=== PATIENT | female | born 1990 | race Caucasian/White ===

== ENCOUNTER 2020-06-04 11:08 | Outpatient (CLI) | payer MEDICAID, SELFPAY ==
--- NOTE | ~2020-06-04 | US_ITS ---
EXAMINATION: US OB <=14 wk fetus w TV DATE: 06/04/2020 11:52 INDICATION: Vaginal bleeding during 10 per week of TECHNIQUE: Real-time pelvic ultrasound utilizing both a transvaginal and transabdominal probe was pe rformed. The interpreting radiologist was not present for the study. COMPARISON: None. FINDINGS: The uterus measures 12.3 x 7.3 x 6.3 cm. There is an intrauterine gestational sac. A yolk sac and po ssible pole are identified. The crown rump length of the presumptive pole measures 3 mm, which correlates with an estimated gestational age of 6 weeks and 0 days. No discernible heart motion. The right ovary measures 2.6 x 2.5 x 3.6 cm. The left ovary measures 2.6 x 2.3 x 1.6 cm. There is no free fluid in the pelvis. IMPRESSION: 1. Single intrauterine gestational sac with yolk sac and possible 3 mm pole which is without di scernible heart motion which could be due to either early stage of or failed . 2. Gestational age by ultrasound of 6 weeks 0 day(s) +/- 4 day(s) with ultrasound estimated date of delivery (BRANDY) of 01/28/2021. Reviewed, dictated and finalized at location A. [facility] TA[employer] IMPRESSION: 1. Single intrauterine gestational sac with yolk sac and possible 3 mm po le which is without discernible heart motion which could be due to either early stage of or failed . 2. Gestational age by ultrasound of 6 weeks 0 day(s) +/- 4 day(s) with ultraso und estimated date of delivery (BRANDY) of 01/28/2021.
== END 2020-06-04 11:09 | disposition home or self-care (01) ==
PROVIDERS: PCP Family Medicine; Visit Provider Obstetrics & Gynecology
DX: O20.0 Threatened abortion (principal); Z3A.01 Less than 8 weeks gestation of pregnancy
CPT/HCPCS: 76801; 76817

== ENCOUNTER 2020-06-07 11:58 | Day surgery (SDC) | payer MEDICAID, SELFPAY ==
[2020-06-07 12:50] VITALS: BMI 22.0
[2020-06-07] MEDS: ACETAMINOPHEN 500 MG TABLET 1000 MG PO (12:55)
--- NOTE | 2020-06-07 13:02 | P.PNAN_ITS ---
Anes - Initial Pre Proc Eval Procedure: Operation Date: 06/07/20 14:00 Proposed Procedures p Suction Dilation And Curettage - Neela Escalante MD Date/Time: 06/07/20 13:02 Surgeon: Neela Escalante MD Pre Op Diagnosis: Missed AB Patient Data Age: 29 Gender: F Height: 1.57 m Weight: 54.6 kg Allergies Allergy/AdvReac Type Severity Reaction Status Date / Time No Known Allergies Allergy Verified 06/07/20 12:27 Home Medications Medication Instructions Recorded Confirmed Type No Home Medications 06/07/20 06/07/20 History Patient hx anesthesia problems: none Family hx anesthesia problems: none [facility] Social History Social History Smoking status: Former smoker Alcohol intake: never Anes - Eval Final PreProcedure Day of Procedure 06/07/20 13:02 Patient weight: normal Heart: regular rate and rhythm Lungs: clear to auscultation and normal air movement Airway: Mallampati scale class II Neurological: alert and oriented Last oral intake: >/= 8 hours ASA classification: II Emergent: no Anesthetic plan: proceed Anesthesia type and monitoring: general GIVS and LMA Informed Consent: The patient's anesthetic plan and its attendant risks and benefits were discussed with the patient/family/POA. Questions were solicited and answers provided to the satisfaction of the patient/family/POA.
[2020-06-07] MEDS: LACTATED RINGERS 1,000 ML 30 ML IV CONT (13:13)
[2020-06-07 13:16] VITALS: BP 98/55; PULSE 83; RESP 16; TEMP 37.3; O2SAT 100
[2020-06-07] MEDS: fentaNYL CITRATE INJ (*CRX) 100 MCG/2 ML VIAL 50 MCG IV PUSH (13:23)
--- NOTE | 2020-06-07 13:55 | WPDHPUPDATE1 ---
History and Physical Update Update Date/Time: 06/07/20 13:55 History and Physical has been reviewed, including an updated exam of the patient. There are NO changes in the patient's condition. Risks, benefits, and alternatives have been discussed and questions answered. Patient agrees to proceed with procedure.
--- NOTE | 2020-06-07 14:04 | P.OP_ITS ---
Procedure Note - Detailed Date of procedure: 06/07/20 Pre-op diagnosis: Missed AB Post-op diagnosis: same Procedure performed: suction D and C Description of procedure: The risks of the procedure were explained to the patient to include bleeding, infection, uterine perforation, injury to adjacent organs, reaction to anesthesia, and possible . After this was explained to the patient and all of her questions were answered, informed consent was obtained. The patient was taken to the operating room where she received MAC anesthesia without any difficulty. She was placed in dorsal lithotomy position in stirrups and prepped and draped in a normal sterile fashion. A bimanual exam was performed and demonstrated an anteverted uterus, approximately 6 week size. A bivalve speculum was introduced into the vagina. The anterior lip of the cervix was grasped with a single tooth tenaculum. The cervix was dilated in serial fashion to accomodate a #7 curved suction curette. The suction was tested and found to be working properly. The curette was then advanced into the uterine cavity. All products of conception were removed until no tissue was seen passing through the tubing. The specimen was sent to pathology. The single too th tenaculum was removed from the cervix and made hemostatic with pressure. The speculum was removed. The patient tolerated the procedure well. All counts were correct. The patient was awakened and taken to the recovery room in stable condition. Disposition: stable to recovery Anesthesia: MAC Surgeon: Neela Escalante MD Drains: No Packing: No Pathology: yes (products of conception) Complications: No immediate complications Condition: stable Disposition: same day
[2020-06-07] MEDS: KETOROLAC 30 MG/ML VIAL (*BKC) IV PUSH (14:39)
[2020-06-07 14:44] VITALS: BP 78/41; PULSE 89; RESP 20; O2SAT 100
[2020-06-07 14:50] VITALS: BP 83/41; PULSE 77; RESP 20
[2020-06-07 15:15] VITALS: BP 84/49; PULSE 65; RESP 20
[2020-06-07 15:45] VITALS: BP 88/50; PULSE 65; RESP 20
== END 2020-06-07 16:05 | disposition home or self-care (01) ==
PROVIDERS: PCP Family Medicine; Visit Provider Obstetrics & Gynecology
PROC: (CPT 59820; principal; 2020-06-07 14:00)
DX: O02.1 Missed abortion (principal)
CPT/HCPCS: 59820; 36415; 85461; 88305; A9270; J1100; J1885; J2250; J2405; J2704; J3010; J7120

== ENCOUNTER 2020-07-17 21:27 | Emergency (ER) | payer OTHER, SELFPAY ==
--- NOTE | ~2020-07-17 | US_ITS ---
EXAMINATION: US pelvic complete w TV DATE: 07/18/2020 01:06 INDICATION: Left lower quadrant abdominal pain. TECHNIQUE: Multiple transabdominal and transvaginal sonographic images of the pelvis were obtained. COMPARISON: Ultrasound 06/04/2020 FINDINGS: TRANSABDOMINAL ULTRASOUND: The uterus measures 10.5 x 6.2 x 5.4 cm. The right ovary measures 3.2 x 3.0 x 2.6 cm. The left ovary measures 2.8 x 2.6 x 1.9 cm. There is normal vascular flow in the ovaries. There is trace free fluid in the pelvis. TRANSVAGINAL ULTRASOUND: The endometrial complex measures 25 mm in thickness. IMPRESSION: 1. Thickened endometrial complex suspicious for retained products of conception. Reviewed, dictated and finalized at location A. L[facility] P[employer]OT IMPRESSION: 1. Thickened endometrial complex suspicious for retained products of conception .
[2020-07-17 21:28] VITALS: BP 135/92; PULSE 83; RESP 18; TEMP 36.9; O2SAT 100
[2020-07-17 22:10] LABS: Basophils Percent Auto 0.5 % (0.2-1.2); Eosinophils Absolute Auto 0.2 K/mm3 (0-0.3); Eosinophils Percent Auto 2.4 % (0-4.4); Hematocrit 35.4 % (37.0-47.0); Hemoglobin 11.6 g/dL (12.0-15.0); Immature Granulocyte Absolute 0.01 K/mm3 (0.00-0.031); Immature Granulocyte Percent A 0.2 % (0-0.5); Lymphocytes Absolute Auto 1.59 K/mm3 (0.9-3.2); Lymphocytes Percent Auto 25.1 % (18.3-44.2); Mean Corpuscular HGB Conc 32.8 g/dl (32-36); Mean Corpuscular Hemoglobin 31.5 pg (26-34); Mean Corpuscular Volume 96.2 fl (80-100); Mean Platelet Volume 10.2 fl (7.4-10.4); Monocytes Absolute Auto 0.6 K/mm3 (0.1-0.6); Monocytes Percent Auto 9.3 % (2.6-8.5); Neutrophils Percent Auto 62.5 % (45.5-73.1); Platelet Count Result 227 k/mm3 (150-375); Red Blood Count 3.68 M/mm3 (4.2-5.4); White Blood Count 6.3 K/mm3 (4.5-10.0)
[2020-07-17] MEDS: SODIUM CHLORIDE 0.9% IV 1,000 ML 999 ML IV CONT (22:14)
[2020-07-17 22:19] LABS: Prothrombin Time 13.4 Seconds (11.1-14.7)
[2020-07-17 22:20] LABS: Partial Thromboplastin Time 29.5 SECONDS (22.3-36.8)
[2020-07-17 22:23] LABS: Alanine Aminotransferase 11 U/L (4-35); Albumin Level 4.6 g/dL (3.5-5.1); Alkaline Phosphatase 37 U/L (38-126); Anion Gap 8 mmol/L (8-16); Aspartate Amino Transferase 21 U/L (14-36); Bilirubin,Total 0.2 mg/dL (0.2-1.3); Blood Urea Nitrogen 16 mg/dL (7-17); Calcium 9.3 mg/dL (8.4-10.2); Carbon Dioxide 27 mmol/L (22-30); Chloride 106 mmol/L (98-107); Estimated CRCL calculation 95 ml/min; Estimated Glomerular Filt Rate > 60; Glucose 97 mg/dL (65-105); Potassium 3.9 mmol/L (3.4-5.0); Sodium 141 mmol/L (137-145)
[2020-07-17 22:39] LABS: Beta HCG Quantitative < 2.39 mIU/ML
--- NOTE | 2020-07-17 22:39 | ED.GENADULT ---
HPI - General Adult General Chief complaint: Vaginal Bleeding Stated complaint: post DNC complications Time Seen by Provider: 07/17/20 21:40 History of Present Illness HPI narrative: Patient is a 29-year-old female who presents emerge department with chief complaint of vaginal bleeding. Patient reports that she had a D&C the first week of May and has had intermittent bleeding since then. The patient has spoken to her [employer] who scheduled her for a outpatient ultrasound but the patient was unable to make the appointment for the outpatient ultrasound. Patient states that today she started having some gushing bleeding from her vagina. The patient reports that several days ago she also passed some large clots which she described as golf ball sized patient states that the discharge is count of around 80 and is malodorous today similar to whenever she had to have her D&C. Related Data Home Medications Medication Instructions Recorded Confirmed No Home Medications 06/07/20 06/07/20 Allergies Allergy/AdvReac Type Severity Reaction Status Date / Time No Known Allergies Allergy Verified 06/07/20 12:27 Review of Systems Review of Systems: Narrative: A 10 system review of systems was completed on the patient and is negative except for what is stated in the HPI. Nursing and ancillary documentation was reviewed. [facility] Social History Social History Smoking status: Former smoker Alcohol intake: never Comments Past surgical history is significant for D&C Exam Narrative: Exam Narrative: GENERAL: Well-appearing, well-nourished, and in no acute distress. HEAD: Normocephalic, atraumatic. EYES: PERRLA and EOMI. ENT: Nares clear, no rhinorrhea or epistaxis. Mucous membranes moist. NECK: Supple. CHEST: Clear to auscultation. No respiratory distress. HEART: Regular rate and rhythm. No murmur heard. Normal peripheral pulses. ABDOMEN: Soft, mild tenderness to palpation in the left lower quadrant and suprapubic region, nondistended, normal active bowel sounds. EXTREMITIES: Normal range of motion. No edema. SKIN: Warm, dry, no rash. NEURO: No focal deficits. Alert and oriented x3. PSYCH: Normal mood and affect. Course Course Emergency Course: Ultrasound showed a 2.5 cm thickened and endometrial stripe the patient's hemoglobin was 11.6 the case was discussed with the on-call OB for the patient's primary [employer] patient will be discharged home to follow-up as an outpatient this week Vital Signs Vital signs: Vital Signs Temperature 36.9 C 07/17/20 21:28 Pulse Rate 83 07/17/20 21:28 Respiratory Rate 18 07/17/20 21:28 Blood Pressure 135/92 H 07/17/20 21:28 Pulse Oximetry 100 07/17/20 21:28 Temperature 36.9 C 07/17/20 21:28 Pulse Rate 83 07/17/20 23:47 Respiratory Rate 18 07/17/20 21:28 Blood Pressure 120/80 07/17/20 23:47 Pulse Oximetry 100 07/17/20 21:28 Medical Decision Making Vital Signs Vital Signs: Vital Signs Temperature 36.9 C 07/17/20 21:28 Pulse Rate 83 07/17/20 21:28 Respiratory Rate 18 07/17/20 21:28 Blood Pressure 135/92 H 07/17/20 21:28 Pulse Oximetry 100 07/17/20 21:28 Temperature 36.9 C 07/17/20 21:28 Pulse Rate 83 07/17/20 23:47 Respiratory Rate 18 07/17/20 21:28 Blood Pressure 120/80 07/17/20 23:47 Pulse Oximetry 100 07/17/20 21:28 Lab Data Result diagrams: 07/17/20 22:00 07/17/20 22:00 Labs: Lab Results 07/17/20 07/17/20 07/17/20 Range/Units 22:00 22:00 22:00 WBC 6.3 (4.5-10.0) K/mm3 RBC 3.68 L (4.2-5.4) M/mm3 Hgb 11.6 L (12.0-15.0) g/dL Hct 35.4 L (37.0-47.0) % MCV 96.2 (80-100) fl MCH 31.5 (26-34) pg MCHC 32.8 (32-36) g/dl RDW 13.0 (11.5-14.5) % Plt Count 227 (150-375) k/mm3 MPV 10.2 (7.4-10.4) fl Immature Gran % (Auto) 0.2 (0-0.5) % Neut % (Auto) 62.5 (45.
[2020-07-17 23:10] LABS: Add Urine Microscopic? YES; Appearance Urine Clear (Clear); Bilirubin Urine Negative (Negative); Blood Urine 3+ (Negative); Color Urine Straw (Yellow); Glucose Urine UA Negative (Negative); Ketones Urine Negative (Negative); Leukocyte Esterase Ur Negative LEU/UL (Negative); Mucus Urine Rare /lpf; Nitrate Urine Negative (Negative); Protein Urine 1+ mg/dL (Negative); RBC Urine >75 /hpf (0-2); Specific Grav Ur 1.021 (1.001-1.035); Squamous Epithelial Cell Urine Occasional /hpf (Few); Urobilinogen Urine Negative mg/dL (<2.0); WBC Urine 0-3 /hpf
[2020-07-17 23:46] VITALS: BP 109/69; PULSE 69
[2020-07-17 23:47] VITALS: BP 113/73; BP 120/80; PULSE 80; PULSE 83
[2020-07-18 03:01] VITALS: BP 98/58; PULSE 78; RESP 16; O2SAT 100
== END 2020-07-18 03:02 | disposition home or self-care (01) ==
PROVIDERS: Emergency Provider Emergency Medicine; PCP Family Medicine
DX: N93.9 Abnormal uterine and vaginal bleeding, unspecified (principal); Z87.891 Personal history of nicotine dependence
CPT/HCPCS: 36415; 76830; 76856; 80053; 81001; 84702; 85025; 85610; 85730; 86850; 86900; 86901; 96361; 96365; 99284; J0131; J7030

== ENCOUNTER 2021-07-27 10:12 | Emergency (ER) | payer OTHER, SELFPAY ==
[2021-07-27 10:22] VITALS: BP 110/75; PULSE 94; RESP 16; TEMP 36.6; O2SAT 100
--- NOTE | 2021-07-27 10:36 | ED.URI ---
HPI - URI/Sore Throat General Chief Complaint: Upper Respiratory Infection Stated Complaint: ABD PAIN/COUGH/CHEST TIGHT/SORE THROAT Source: patient and RN notes reviewed Limitations: no limitations History of Present Illness HPI Narrative: The unvaccinated patient, a smoker/nondrinker, presents with 1 week history of urinary frequency and dysuria associated with suprapubic tenderness. No fever, low back pain, vomiting/diarrhea but she does have suprapubic discomfort and her menstrual cycle she says is about to began [after normal 1 last month]. She also mentions a shorter couple day history of cough, scratchy throat chills sternal chest pains with cough; no fever, earache, wheeze, loss of taste/smell, C precordial CP, S OB. Related Data Allergies Allergy/AdvReac Type Severity Reaction Status Date / Time No Known Allergies Allergy Verified 06/07/20 12:27 Review of Systems Review of Systems: General/Constitutional: No weight loss,fever Eyes: N0: Redness,discharge Ears/Nose/Throat: No: Epistaxis,ear discharge Respiratory: Denies: Hemoptysis Gastrointestinal: No Vomiting, Bleeding-rectal Skin: No Lumps, eruption Neurologic: No Focal Weakness,Sz Hematologic: Denies: Petechiae/Purpura Psychiatric: No: Suicida ideationl All Other Systems: Reviewed and Negative PMFSH Social History Social History Smoking status: Former smoker Alcohol intake: never Comments At time of signature, agree with nursing past medical, surgical, social and family history. There is no relevant family history pertinent to the presenting complaint Exam Narrative: General Appearance: Well appearing, Well nourished EYE: PERRLA, Conjunctiva clear Ears: Auditory canal normal, TM normal Nose: Rhinorrhea, Mucousal erythema Mouth/Throat: MM moist, Uvula midline, Pharyngeal erythema Neck: Supple, No adenopathy Respiratory: No respiratory distress, Breath sounds equal, Clear to auscultation Cardiovascular: RRR, No JVD GI: Suprapubic tenderness soft, no rebound/surgical signs, no CVAT Musculoskeletal: Non tender, Normal strength Skin: Warm, Dry Neurological: A&O x3, CN II-XII intact Psychiatric: Normal mood, Normal affect Course Vital Signs Vital signs: Vital Signs Temperature 98 F 07/27/21 10:22 Pulse Rate 94 07/27/21 10:22 Respiratory Rate 16 07/27/21 10:22 Blood Pressure 110/75 07/27/21 10:22 Pulse Oximetry 100 07/27/21 10:22 Temperature 98 F 07/27/21 10:22 Pulse Rate 94 07/27/21 10:22 Respiratory Rate 16 07/27/21 10:22 Blood Pressure 110/75 07/27/21 10:22 Pulse Oximetry 100 07/27/21 10:22 MDM - URI/Sore Throat Lab Data Labs: Urine Glucose Negative Reference Range: Negative Urine Bilirubin Negative Reference Range: Negative Urine Ketone Negative Reference Range: Negative Urine Specific [place] 1.030 Reference Range:1.001-1.035 Urine Blood Trace Reference Range: Negative * * Urine pH 6.0 Reference Range: 5.0-9.0 Urine Protein Negative Reference Range: Negative Urine Urobilinogen 0.2 Reference Range: 0.2-1.0 Urine Nitrate Negative Reference Range: Negative Urine Leukocyte Negative Reference Ran
== END 2021-07-27 10:55 | disposition home or self-care (01) ==
PROVIDERS: Emergency Provider Emergency Medicine; PCP Family Medicine
DX: R35.0 Frequency of micturition (principal); R05.9 Cough, unspecified; Z20.822 Contact with and (suspected) exposure to COVID-19; Z87.891 Personal history of nicotine dependence
CPT/HCPCS: 81003; 87086; 87491; 87591; 99214; G0463

== ENCOUNTER → 2021-07-29 00:16 | Outpatient (CLI) | payer OTHER, SELFPAY ==
[2021-07-29 20:43] LABS: SARS-CoV-2 RNA PCR Negative
== END ==
PROVIDERS: PCP Family Medicine; Visit Provider Emergency Medicine
DX: R05.9 Cough, unspecified (principal); Z20.822 Contact with and (suspected) exposure to COVID-19
CPT/HCPCS: C9803; U0003; U0005

== ENCOUNTER 2023-10-05 09:24 | Outpatient (CLI) | payer BC, SELFPAY ==
--- NOTE | ~2023-10-05 | US_ITS ---
US breast LT limited DATE: 10/05/2023 10:12 INDICATION: Left breast lump at 9:00 TECHNIQUE: Real-time imaging targeted area clinical complaint of left breast lump at 9:00 3.5 cm from the nipple COMPARISON: None FINDINGS: Real-time imaging targeted area clinical complaint of left breast lump at 9:00 3.5 cm from the nipple reveals no suspicious mass or shadowing, cyst or other significant sonographic abnormality . IMPRESSION: No sonographic abnormality is detected the area of clinical complaint at 9:00 3.5 cm from nipple Reviewed, dictated and finalized at [facility]. Reviewed, dictated and finalized at location A. R INSPECTOR IMPRESSION: No sonographic abnormality is detected the area of clinical complai nt at 9:00 3.5 cm from nipple
== END 2023-10-05 09:25 ==
LOC: MICIMG 09:26
PROVIDERS: PCP Nurse Practitioner; Visit Provider Nurse Practitioner
DX: N63.25 Unspecified lump in the left breast, overlapping quadrants (principal)
CPT/HCPCS: 76642

== ENCOUNTER 2024-04-07 18:08 | Emergency (ER) | payer OTHER, SELFPAY ==
[2024-04-07 18:26] VITALS: BP 122/65; PULSE 80; RESP 18; TEMP 36.7; O2SAT 100
--- NOTE | 2024-04-07 18:38 | ED.EAR ---
HPI - Ear Problem General Chief complaint: Ear Stated complaint: Right Ear Problem Time Seen by Provider: 04/07/24 18:38 Source: patient Mode of arrival: ambulatory Limitations: no limitations History of Present Illness HPI Narrative: 33-year-old female presented for complaint of ringing and buzzing in the right ear for about 1 week. Symptoms are intermittent. She denies injury or exposure to loud noises. Denies ear pain or drainage, dizziness, nausea vomiting, fevers or chills. Occasionally takes antihistamine for seasonal allergies. MD Complaint: ear pain Related Data Home Medications Medication Instructions Recorded Confirmed No Home Medications 11/29/23 04/07/24 Allergies Allergy/AdvReac Type Severity Reaction Status Date / Time No Known Allergies Allergy Verified 04/07/24 18:36 Review of Systems Review of Systems: CONSTITUTIONAL: Denies malaise, chills, or fever. EYES: Denies visual changes, redness, or discharge. ENT: Denies rhinorrhea, congestion, sinus pain, and sore throat. Reports ear ringing CARDIOVASCULAR: Denies chest pain, palpitations, or edema. RESPIRATORY: Denies cough or dyspnea. GASTROINTESTINAL: Denies abdominal pain, nausea, vomiting, diarrhea SKIN: Denies rash or itching. MUSCULOSKELETAL: Denies myalgia. NEUROLOGIC: Denies headache. All systems reviewed & are unremarkable except as noted in HPI and below PMFSH Family History Family History Father Autoimmune disorder Social History Social History Smoking status: Current every day smoker Alcohol intake: current Alcohol use details: rarely Substance use: never Substance use type: does not use Do You Feel Safe in your Home?: Yes Lack of Transportation: No Lack of Food: Never True Current Housing: I Have Housing Concerned About Future Housing: No Difficulty Paying Gas/Electric Bills: No Difficulty Paying for Meds: No Currently Unemployed: No Education: High School Diploma/GED Difficulty w/ Childcare or Family Care: No Comments At time of signature, agree with nursing past medical, surgical, social and family history. There is no relevant family history pertinent to the presenting complaint Exam Narrative: GENERAL: Well-appearing, well-nourished, and in no acute distress. EYES: conjunctivae clear ENT: Nares clear. Mucous membranes moist. TMs pearly arteaga with normal light reflex bilaterally; no tragal tenderness. Oropharynx not erythematous without lesions. Tonsils not enlarged and without exudate, no drooling, no hoarseness, no trismus, uvula midline. NECK: Supple. No lymphadenopathy CHEST: Clear to auscultation, breath sounds equal. No wheezing, rhonchi, rales, or stridor. No respiratory distress, speaks in full sentences. HEART: Regular rate and rhythm. No murmur heard. SKIN: Warm, dry, no rash. NEURO: Alert and oriented x3. PSYCH: Normal mood and affect Course Course Emergency Course: Patient is aware of diagnosis, understands and agrees to treatment plan. Anticipatory guidance given. Patient agrees to follow-up as directed and is aware of reasons to seek care at the emergency department. Portions of this record may have been created with voice recognition software Level of Care: Express Care Visit Vital Signs Vital signs: Vital Signs Temperature 98.0 F 04/07/24 18:26 Pulse Rate 80 04/07/24 18:26 Respiratory Rate 18 04/07/24 18:26 Blood Pressure 122/65 04/07/24 18:26 Pulse Oximetry 100 04/07/24 18:26 Oxygen Delivery Room Air 04/07/24 18:26 Temperature 98.0 F 04/07/24 18:26 Pulse Rate 80 04/07/24 18:26 Respiratory Rate 18 04/07/24 18:26 Blood Pressure 122/65 04/07/24 18:26 Pulse Oximetry 100 04/07/24 18:26 Oxygen Delivery Room Air 04/07/24 18:26 Reviewed Medical Decision Making MDM Narrative Medical decision making
== END 2024-04-07 18:50 | disposition home or self-care (01) ==
PROVIDERS: Emergency Provider Nurse Practitioner Family
DX: H93.11 Tinnitus, right ear (principal); F17.200 Nicotine dependence, unspecified, uncomplicated
CPT/HCPCS: 99211; G0463